=== PATIENT | female | born 1970 | race Caucasian/White ===

== ENCOUNTER → 2017-10-30 08:45 | Outpatient (CLI) | payer OTHER, SELFPAY ==
--- NOTE | 2017-10-30 09:22 | XR_ITS ---
XR foot RT min 3V HISTORY: Right foot pain ITS.REASON: BILATERAL FOOT PAIN ORDERING PHYSICIAN: Ela Price DPM PATIENT AGE: 47 years COMPARISON: None FINDINGS: Weightbearing views are performed. There is minimal hallux valgus. No fracture or dislocation. No lytic or blastic change. There is mild pes planus. There is an os navicularis. IMPRESSION: Mild hallux valgus and pes planus
--- NOTE | 2017-10-30 09:22 | XR_ITS ---
XR foot LT min 3V HISTORY: Left foot pain ITS.REASON: BILATERAL FOOT PAIN ORDERING PHYSICIAN: Ela Price DPM PATIENT AGE: 47 years COMPARISON: None FINDINGS: There is severe pes planus with hammertoe deformity of all the toes. Mild metatarsus varus. There is an extra bony density noted along the plantar and lateral aspect of the calcaneus measuring 2.3 cm. This is seen only on the oblique view may be better evaluated with CT. No acute fracture or other significant anomalies evident. IMPRESSION: 1. Severe pes planus with hammertoe deformity and mild metatarsus varus 2. Sclerotic density along the mid and lateral aspect of the calcaneus etiology indeterminate. Consider CT for more thorough evaluation.
== END ==
PROVIDERS: Visit Provider Podiatrist
DX: M79.671 Pain in right foot (principal); M79.672 Pain in left foot
CPT/HCPCS: 73630

== ENCOUNTER → 2017-11-14 10:44 | Outpatient (POV) | payer SELFPAY | PROVIDERS: PCP Podiatrist; Visit Provider Podiatrist | DX: Z00.00 Encounter for general adult medical examination without abnormal findings (principal) ==